=== PATIENT | female | born 1975 | race Caucasian/White ===

== ENCOUNTER → 2018-02-14 | Outpatient (CLI) | payer OTHER | LOC: LAB 15:37 | DX: L02.91 Cutaneous abscess, unspecified (principal) ==

== ENCOUNTER 2018-02-22 21:45 | Emergency (ER) | payer OTHER ==
[~2018-02-22] VITALS: Ht 175.3 cm; Wt 145.5 kg
[2018-02-22 22:28] LABS: EOS # 0.2 (0.04-0.40); EOS % 1.6 % (1.0-5.0); HEMATOCRIT 38.2 % (37.0-47.0); HEMOGLOBIN 12.4 g/dL (12.5-16.0); LYMPH# 2.7 (1.50-4.00); MEAN CELL VOLUME 87 fl (78-100); MEAN CORPUSCULAR HEMOGLOBIN 28 pg (27-31); MEAN CORPUSCULAR HGB CONC 33 g/dL (33-37); MEAN PLATELET VOLUME 8.9 fl (7.4-10.4); MONO # 0.8 (0.20-0.80); NEU # 6.7 (1.40-6.50); PLATELET COUNT 255 K/mm3 (130-400); RED BLOOD COUNT 4.39 M/mm3 (4.10-5.30); WHITE BLOOD COUNT 10.4 K/mm3 (4.8-10.8)
[2018-02-22] MEDS ORDERED: MOBIC15 M1 PO (22:38)
[2018-02-22] MEDS ORDERED: LEXAPRO 10MG10 MG PO (22:38)
[2018-02-22] MEDS ORDERED: ESTRACE1 M1 PO ×2 (22:39)
[2018-02-22] MEDS ORDERED: PROTONIX TR40 M1 PO (22:40)
[2018-02-22 22:42] LABS: ALBUMIN 3.7 g/dL (3.5-5.0); BUN/CREATININE RATIO 15.1 (6.0-26.0); POTASSIUM 3.8 mmol/L (3.6-5.0); TOTAL BILIRUBIN 0.6 mg/dL (0.2-1.3); TOTAL PROTEIN 7.2 g/dL (6.3-8.2)
[2018-02-22 23:44] LABS: URINE APPEARANCE HAZY; URINE COLOR YELLOW
[2018-02-22 23:45] LABS: URINE BILIRUBIN NEGATIVE (NEGATIVE); URINE BLOOD NEGATIVE (NEGATIVE); URINE GLUCOSE NEGATIVE (NEGATIVE); URINE KETONE NEGATIVE (NEGATIVE); URINE LEUKOCYTE ESTERASE NEGATIVE (NEGATIVE); URINE MUCUS PRESENT (NOT PRESENT); URINE NITRATE NEGATIVE (NEGATIVE); URINE PROTEIN(semi-quant) NEGATIVE (NEGATIVE); URINE UROBILINOGEN NORMAL (NORMAL); URINE WBC 0-1 /hpf (0-3)
[2018-02-23 00:11] VITALS: BP 153/90
== END 2018-02-23 00:11 | disposition home or self-care (01) ==
LOC: ED 21:45
PROVIDERS: Nurse Practitioner
DX: R10.13 Epigastric pain (principal); R10.11 Right upper quadrant pain; Z90.49 Acquired absence of other specified parts of digestive tract
CPT/HCPCS: J2405; J3010; Q9967

== ENCOUNTER 2018-05-11 13:29 | Emergency (ER) | payer OTHER ==
[~2018-05-11] VITALS: Ht 175.3 cm; Wt 145.5 kg
[~2018-05-11 13:29] MED LIST: ESTRACE1 M1 PO; LEXAPRO 10MG10 MG PO; MOBIC15 M1 PO; PROTONIX TR40 M1 PO
[2018-05-11 14:58] VITALS: BP 136/77
== END 2018-05-11 14:58 | disposition home or self-care (01) ==
LOC: ED 13:29
DX: S13.4XXA Sprain of ligaments of cervical spine, initial encounter (principal); S00.03XA Contusion of scalp, initial encounter; S20.221A Contusion of right back wall of thorax, initial encounter; W01.0XXA Fall on same level from slipping, tripping and stumbling without subsequent striking against object, initial encounter; Y99.0 Civilian activity done for income or pay; M25.511 Pain in right shoulder; R40.2412 Glasgow coma scale score 13-15, at arrival to emergency department; Z79.899 Other long term (current) drug therapy
CPT/HCPCS: J1885; J2360

== ENCOUNTER → 2018-07-11 | Outpatient (CLI) | payer BC | LOC: PT 14:21 → EDSTATUS 14:22 → PT 15:23 | DX: Z01.818 Encounter for other preprocedural examination (principal); M76.822 Posterior tibial tendinitis, left leg ==

== ENCOUNTER 2018-09-01 21:46 | Emergency (ER) | payer BC ==
[~2018-09-01] VITALS: Ht 175.3 cm; Wt 144.1 kg
[2018-09-01] MEDS ORDERED: NORCO 325 MG-51 TA1 PO (22:34)
[2018-09-01 23:40] VITALS: BP 149/85
[2018-09-01] MEDS ORDERED: NORCO 7.5-3251 EACH PO (23:49)
== END 2018-09-01 23:40 | disposition home or self-care (01) ==
LOC: ED 21:46
DX: S20.221A Contusion of right back wall of thorax, initial encounter (principal); W10.9XXA Fall (on) (from) unspecified stairs and steps, initial encounter; Y92.009 Unspecified place in unspecified non-institutional (private) residence as the place of occurrence of the external cause; K21.9 Gastro-esophageal reflux disease without esophagitis; Z79.899 Other long term (current) drug therapy
CPT/HCPCS: J1885

== ENCOUNTER 2018-12-29 20:47 | Emergency (ER) | payer BC ==
[~2018-12-29 20:47] MED LIST changes: +NORCO 325 MG-51 TA1 PO; +NORCO 7.5-3251 EACH PO
[2018-12-29 22:33] VITALS: BP 135/87
== END 2018-12-29 22:33 | disposition home or self-care (01) ==
LOC: ED 20:47
DX: S93.602A Unspecified sprain of left foot, initial encounter (principal); S82.892D Other fracture of left lower leg, subsequent encounter for closed fracture with routine healing; W01.0XXA Fall on same level from slipping, tripping and stumbling without subsequent striking against object, initial encounter; Y92.009 Unspecified place in unspecified non-institutional (private) residence as the place of occurrence of the external cause
CPT/HCPCS: J1885

== ENCOUNTER 2019-01-25 09:00 | Outpatient (RCR) | payer BC, OTHER | END 2019-03-28 | disposition home or self-care (01) | LOC: PT | DX: L03.116 Cellulitis of left lower limb (principal) ==

== ENCOUNTER → 2019-10-30 | Outpatient (CLI) | payer OTHER, BC | LOC: RAD 10:17 | DX: M79.89 Other specified soft tissue disorders (principal); V87.7XXD Person injured in collision between other specified motor vehicles (traffic), subsequent encounter ==

== ENCOUNTER 2019-12-15 18:12 | Emergency (ER) | payer BC ==
[~2019-12-15] VITALS: Ht 167.6 cm; Wt 145.5 kg
[2019-12-15] MEDS ORDERED: MELOXICAM15 MG PO (19:15)
[2019-12-15] MEDS ORDERED: TRAMADOL 50 MG TAB PO (19:15)
[2019-12-15 19:42] LABS: EOS # 0.2 (0.04-0.40); EOS % 1.5 % (1.0-5.0); HEMATOCRIT 39.1 % (37.0-47.0); HEMOGLOBIN 12.5 g/dL (12.5-16.0); LYMPH# 2.7 (1.50-4.00); MEAN CELL VOLUME 87 fl (78-100); MEAN CORPUSCULAR HEMOGLOBIN 28 pg (27-31); MEAN CORPUSCULAR HGB CONC 32 g/dL (33-37); MEAN PLATELET VOLUME 8.7 fl (7.4-10.4); MONO # 0.7 (0.20-0.80); NEU # 6.8 (1.40-6.50); PLATELET COUNT 270 K/mm3 (130-400); RED BLOOD COUNT 4.51 M/mm3 (4.10-5.30); RED CELL DISTRIBUTION WIDTH 15.4 % (11.5-14.5); WHITE BLOOD COUNT 10.4 K/mm3 (4.8-10.8)
[2019-12-15 20:33] LABS: ERYTHROCYTE SEDIMENTATION RATE 18 mm/hr (0-20)
[2019-12-15 21:01] VITALS: BP 148/88
== END 2019-12-15 21:01 | disposition home or self-care (01) ==
LOC: ED 18:12
PROVIDERS: Family Medicine
DX: M25.572 Pain in left ankle and joints of left foot (principal); M54.5 Low back pain; G89.29 Other chronic pain; Z79.891 Long term (current) use of opiate analgesic; Z98.890 Other specified postprocedural states
CPT/HCPCS: J1885

== ENCOUNTER 2020-10-08 12:21 | Emergency (ER) | payer BC ==
[~2020-10-08] VITALS: Ht 170.2 cm; Wt 150.0 kg
[~2020-10-08 12:21] MED LIST changes: +MELOXICAM15 MG PO; +TRAMADOL 50 MG TAB PO
[2020-10-08 13:04] LABS: EOS # 0.2 (0.04-0.40); EOS % 1.8 % (1.0-5.0); HEMATOCRIT 41.8 % (37.0-47.0); HEMOGLOBIN 13.4 g/dL (12.5-16.0); LYMPH# 2.3 (1.50-4.00); MEAN CELL VOLUME 86 fl (78-100); MEAN CORPUSCULAR HEMOGLOBIN 28 pg (27-31); MEAN CORPUSCULAR HGB CONC 32 g/dL (33-37); MEAN PLATELET VOLUME 8.6 fl (7.4-10.4); MONO # 0.7 (0.20-0.80); PLATELET COUNT 251 K/mm3 (130-400); RED BLOOD COUNT 4.86 M/mm3 (4.10-5.30); RED CELL DISTRIBUTION WIDTH 15.1 % (11.5-14.5); WHITE BLOOD COUNT 9.3 K/mm3 (4.8-10.8)
[2020-10-08 13:10] LABS: ALBUMIN 4.3 g/dL (3.5-5.0); POTASSIUM 3.7 mmol/L (3.5-5.1); SODIUM 142 mmol/L (136-145)
[2020-10-08 13:11] LABS: CALCIUM 9.1 mg/dL (8.3-10.5)
[2020-10-08 13:12] LABS: GLUCOSE 78 mg/dL (65-105)
[2020-10-08 13:13] LABS: TOTAL PROTEIN 7.8 g/dL (6.4-8.3)
[2020-10-08 13:14] LABS: CARBON DIOXIDE 23 mmol/L (22-29); TOTAL BILIRUBIN 0.7 mg/dL (0.2-1.2)
[2020-10-08 13:18] LABS: AST-SGOT 22 U/L (5-34)
[2020-10-08 13:19] LABS: ALT/SGPT 32 U/L (0-55)
[2020-10-08 13:25] LABS: TROPONIN-I < 0.03 ng/mL (<0.030)
[2020-10-08 13:50] LABS: D-DIMER 0.36 mg/L FEU (0.15-0.50)
[2020-10-08 14:58] VITALS: BP 154/93
== END 2020-10-08 15:02 | disposition home or self-care (01) ==
LOC: ED 12:21
PROVIDERS: Physician Assistant
DX: R07.89 Other chest pain (principal); K21.9 Gastro-esophageal reflux disease without esophagitis; Z90.710 Acquired absence of both cervix and uterus; Z90.49 Acquired absence of other specified parts of digestive tract; Z88.0 Allergy status to penicillin; Z88.1 Allergy status to other antibiotic agents; Z79.1 Long term (current) use of non-steroidal anti-inflammatories (NSAID); Z79.899 Other long term (current) drug therapy
CPT/HCPCS: J1885

== ENCOUNTER 2021-04-08 20:03 | Emergency (ER) | payer BC ==
[2021-04-08] MEDS ORDERED: TRAMADOL 50 MG TAB PO (22:31)
[2021-04-08] MEDS ORDERED: LISINOPRIL20 MG PO (22:32)
[2021-04-08] MEDS ORDERED: ACETAMINOPHEN-H1 TA2 PO (22:32)
[2021-04-08 22:42] VITALS: BP 150/99
== END 2021-04-08 22:42 | disposition home or self-care (01) ==
LOC: ED 20:03
DX: K59.00 Constipation, unspecified (principal); R10.9 Unspecified abdominal pain; Z90.710 Acquired absence of both cervix and uterus; Z90.49 Acquired absence of other specified parts of digestive tract; Z88.0 Allergy status to penicillin; Z88.1 Allergy status to other antibiotic agents

== ENCOUNTER → 2021-08-31 | Outpatient (CLI) | payer BC ==
[~2021-08-31] MED LIST changes: +ACETAMINOPHEN-H1 TA2 PO; +LISINOPRIL20 MG PO
== END ==
LOC: RAD 15:02
DX: M54.41 Lumbago with sciatica, right side (principal); M48.061 Spinal stenosis, lumbar region without neurogenic claudication; M43.16 Spondylolisthesis, lumbar region; M48.07 Spinal stenosis, lumbosacral region

== ENCOUNTER → 2021-11-04 | Outpatient (CLI) | payer BC | LOC: RAD 08:16 | DX: R05.3 Chronic cough (principal) ==